=== PATIENT | male | born 1935 | race Caucasian/White ===

== ENCOUNTER 2019-03-31 10:50 | Inpatient (IN) ==
[2019-03-31] MEDS ORDERED: TYLENOL PO PRN (13:24)
[2019-03-31] MEDS ORDERED: NS 1,000 ML IV SCH (13:30)
--- NOTE | 2019-03-31 16:30 | Diag Imaging Result Doc PS360 ---
EXAM: CT HEAD W/O CONTRAST HISTORY: AMS, falls TECHNIQUE: Images were obtained from the skull base to vertex without IV contrast as per standard protocol. This exam was performed using automated exposure control, adjustment of mA or kV according to patient size, and/or use of iterative reconstruction technique. COMPARISON: None. Extra-axial spaces: Prominent consistent with moderate atrophy. Intracranial hemorrhage: None appreciated. Ventricular system: Ex vacuo dilatation. Cerebral parenchyma: The deep white matter hypodensity consistent with microvascular disease. Midline shift: None. Cerebellum: Unremarkable. Brainstem: Unremarkable. Calvarium: Normal. Paranasal sinuses and mastoid air cells: Clear. Visualized orbits: Normal. IMPRESSION: Atrophy and microvascular disease. No acute intracranial abnormality is appreciated. Electronically signed by Daniella Hamm 03/31/2019 4:28 PM
[2019-03-31] MEDS: HUMALOG (PARKWAY) SUBQ SCH ×2 (16:50→22:06)
[2019-03-31] MEDS: GLUCOPHAGE PO SCH (16:51)
--- NOTE | 2019-03-31 16:55 | HISTORY AND PHYSICAL ---
CHIEF COMPLAINT: Altered mental status, falls, hyperkalemia and urinary incontinence. HISTORY OF PRESENT ILLNESS: This is an 83-year-old gentleman with a history of BPH and diabetes mellitus. He presents to the hospital as direct admit from Dr. Alonzo's office. He is accompanied by his daughter, Mr. Mckeon has had a history of dementia and has declined over the last 4 to 6 months but during the last 3 to 4 weeks he has become more altered, in the last 2 weeks he has gotten lost while driving, he was pulled over by the police at this time speeding he was unaware of where he was or that he was speeding. He also reported to his daughter that he went walking and was found by a stranger that picked him up and brought him home. He has had difficulty walking with frequent falls over this past week. The daughter stated that at his home that he was soaked in urine and most of his furniture in his home has smells of urine and is actually wet with urine. He is a diabetic. Mr. Mckeon lives alone at [facility]. He is a diabetic that is prescribed metformin. On calling his pharmacy it was found that he has not filled his medications in quite some months neither his metformin nor his Flomax. Labs drawn at Dr. Alonzo's office prior to his admission revealed a potassium of 5.8 with blood sugar greater than 300. He was also noted to have yeast in his urine. PAST MEDICAL HISTORY: 1. Dementia. 2. Diabetes mellitus. 3. BPH. 4. Hypertension. PAST SURGICAL HISTORY: Multiple hernia surgeries. SOCIAL HISTORY: He lives alone. He denies any alcohol, tobacco or illicit drug use. He does have children that live in [place] that visit frequently. ALLERGIES: No known drug allergies. HOME MEDICATIONS: Metformin and Flomax. REVIEW OF SYSTEMS: Discussed with patient with pertinent positives stated in the HPI. He denied any syncope or dizziness any chest pain or palpitations, shortness of breath, cough, fever, chills, any nausea, vomiting, diarrhea, constipation, black or bloody vomitus or stools, any gross hematuria. PHYSICAL EXAMINATION: GENERAL: This is an 83-year-old gentleman who is sitting up in the chair in no distress. VITAL SIGNS: Blood pressure is 167/90 with a heart rate of 90, respirations are 20, temperature is 98.7 degrees oral with room air saturations 99%. HEENT: Pupils are equal, round, react to light EOMs are intact. Sclerae anicteric. Head is normocephalic, atraumatic. Mucous membranes are moist. NECK: Supple with trachea midline. CARDIOVASCULAR: Regular rate and rhythm. S1 and S2 appreciated. Calves are nontender bilateral with peripheral pulses palpable x4 extremities. PULMONARY: Breath sounds are clear with no increased work of breathing noted. Chest rises and falls symmetric with respiration. Chest wall is nontender to palpation. GASTROINTESTINAL: Abdomen soft, nontender, nondistended with bowel sounds in all 4 quadrants. NEUROLOGIC: He is alert, he is oriented with cranial nerves 2-12 grossly intact. SKIN: Warm and dry. ASSESSMENT AND PLAN: 1. Altered mental status. CT head, neuro checks 2. Frequent falls with difficulty walking. Fall precautions, PT 3. Hyperkalemia. Hold potassium containing meds, trend and treat as appropriate. IV hydration. 4. Diabetes mellitus with hyperglycemia. PBG/SSI 5. History of hypertension.c Monitor vs, continue home meds as appropriate 6. Urinary tract infection with yeast. Diflucan. CBC, CMP, HgBA1C, MALLORY, folate, B12 in am Urinalysis, urine culture Plan was discussed with Dr Singh Further treatments pending hospital course. Dictated by SOFI Martinez for Rosalio Singh MD cc: SOFI Martinez MD [facility]
[2019-03-31 17:56] LABS: URINE SOURCE CLEAN CATCH
[2019-03-31 18:14] LABS: BILIRUBIN URINE NEGATIVE (NEGATIVE); BLOOD URINE NEGATIVE (NEGATIVE); CLARITY CLEAR (CLEAR); COLOR YELLOW; KETONE URINE NEGATIVE (NEGATIVE); LEUKOCYTES URINE NEGATIVE (NEGATIVE); NITRITE URINE NEGATIVE (NEGATIVE); PROTEIN URINE NEGATIVE (NEGATIVE); UROBILINOGEN URINE NORMAL
[2019-03-31 18:22] LABS: URINE RBC <10 /HPF (<10); URINE WBC <10 /HPF (<10)
[2019-03-31 18:23] LABS: URINE BACTERIA NEGATIVE /HFP; URINE EPITHELIAL CELLS <10 /HPF (<10); URINE YEAST PRESENT /HPF
--- NOTE | 2019-03-31 19:29 | HISTORY AND PHYSICAL ---
ADDENDUM: The patient presented to the hospital from his primary care office with recurrent falls, urinary tract infection, difficulty walking and hyperkalemia. We are going to admit him to the hospital, treat his potassium, adjust medications, get Physical Therapy involved, and will follow. cc: Rosalio Singh MD
[2019-03-31] MEDS: DIFLUCAN PO SCH (22:33)
[2019-03-31] MEDS: FLOMAX PO SCH (22:33)
[2019-04-01 06:23] LABS: BASO# 0.04 X1000 (0.0-0.2); BASO% 0.5 % (0.0-0.8); EOS# 0.24 X1000 (0.0-0.7); EOS% 2.7 % (0.0-10.0); HEMATOCRIT 47.8 % (42.0-52.0); HEMOGLOBIN 16.3 g/dL (14.0-18.0); IMM GRAN# 0.05 X1000 (0.0-0.04); IMM GRAN% 0.6 % (0.0-0.5); LYMPH% 39.5 % (20.5-51.1); MCH 29.6 PG (27-31); MCHC 34.1 g/dL (33-37); MCV 86.8 FL (81-99); MONO# 0.81 X1000 (0.11-0.59); MONO% 9.2 % (1.7-9.3); MPV 9.7 FL (7.4-10.4); NEUT# 4.21 X1000 (1.4-6.5); NEUT% 47.5 % (42.2-75.2); PLT 242 X1000 (130-400); RBC 5.51 XMIL (4.7-6.1); RDW 12.7 % (11.5-14.5); WBC 8.85 X1000 (4.8-10.8)
[2019-04-01] MEDS: HUMALOG (PARKWAY) SUBQ SCH ×4 (06:25→22:17)
[2019-04-01] MEDS: PRILOSEC PO SCH (06:26)
[2019-04-01 06:27] LABS: HEMOGLOBIN A1C 10.7 % (4.8-6.0)
[2019-04-01 06:35] LABS: AGAP 11; ALBUMIN 3.9 g/dL (3.5-5.0); ALKALINE PHOSPHATASE 63 U/L (32-122); BUN 16 mg/dL (8-22); CALCIUM 9.3 mg/dL (8.8-10.2); CHLORIDE 97 mmol/L (98-107); COSMO 278; CREATININE 0.9 mg/dL (0.7-1.2); ESTIMATED GFR > 60; GLUCOSE 217 mg/dL (70-104); GOT 13 U/L (10-34); GPT 14 U/L (10-44); POTASSIUM 3.9 mmol/L (3.5-5.1); SODIUM 135 mmol/L (136-145); TCO2 28 mmol/L (25-35); TOTAL PROTEIN 6.6 g/dL (6.3-8.3)
[2019-04-01] MEDS: GLUCOPHAGE PO SCH ×2 (08:56→17:44)
[2019-04-01] MEDS: NS 1,000 ML IV SCH ×2 (08:56→22:16)
[2019-04-01] MEDS: DIFLUCAN PO SCH (08:56)
--- NOTE | 2019-04-01 13:35 | PROGRESS NOTE ---
DATE: 04/01/2019 SUBJECTIVE: Patient has no complaints, states he is ready to go home. He denies any fevers, chills. PHYSICAL EXAMINATION: Temperature 97.7 degrees, pulse 78, respiratory rate 18, BP 159/80.General: Patient is awake, alert. He is in no current respiratory distress. HEENT: Normocephalic. Neck: Supple. Cardiovascular: Regular rate. Chest: Clear. Abdomen: Soft, nondistended. Extremities: Moves all extremities. Neurologic: No changes. ASSESSMENT: 1. Dementia. 2. Adult failure to thrive with generalized weakness and frequent falls. 3. Hyperkalemia, resolved. 4. Diabetes. 5. Hypertension. PLAN: Will continue patient in the hospital, continue physical therapy. Expect that he will need rehab on discharge. cc: Rosalio Singh MD
[2019-04-01] MEDS: FLOMAX PO SCH (22:17)
[2019-04-02] MEDS: PRILOSEC PO SCH (06:10)
[2019-04-02] MEDS: HUMALOG (PARKWAY) SUBQ SCH ×4 (06:52→20:35)
[2019-04-02] MEDS: GLUCOPHAGE PO SCH ×2 (08:05→18:32)
[2019-04-02] MEDS: DIFLUCAN PO SCH (08:05)
[2019-04-02] MEDS: NS 1,000 ML IV SCH (11:55)
--- NOTE | 2019-04-02 13:37 | PROGRESS NOTE ---
DATE: 04/02/2019 SUBJECTIVE: The patient is sleeping comfortably. He has no new complaints. OBJECTIVE: Vital Signs: Temp 97, pulse 83, respiratory rate 18, BP 172/88. General: The patient is sleeping comfortably. He is in no respiratory distress. HEENT: Normocephalic. Neck: Supple. CV: Regular rate. Chest: Clear, nonlabored. Abdomen: Soft, nondistended. ASSESSMENT: 1. Hyperkalemia. 2. Dementia. 3. Diabetes with hyperglycemia. 4. Hypertension. PLAN: We are going to continue to follow his blood pressures. Certainly, he may require starting blood pressure medications. Hopefully, he can transition to rehab soon. cc: Rosalio Singh MD
[2019-04-02] MEDS: FLOMAX PO SCH (20:27)
[2019-04-03] MEDS: NS 1,000 ML IV SCH (01:13)
[2019-04-03 05:44] LABS: HEMATOCRIT 45.1 % (42.0-52.0); HEMOGLOBIN 15.4 g/dL (14.0-18.0); MCH 29.7 PG (27-31); MCHC 34.1 g/dL (33-37); MCV 87.1 FL (81-99); MPV 9.1 FL (7.4-10.4); RBC 5.18 XMIL (4.7-6.1); RDW 12.6 % (11.5-14.5); WBC 8.61 X1000 (4.8-10.8)
[2019-04-03 06:00] LABS: AGAP 11; BUN 15 mg/dL (8-22); CALCIUM 9.3 mg/dL (8.8-10.2); CHLORIDE 102 mmol/L (98-107); COSMO 286; CREATININE 0.9 mg/dL (0.7-1.2); ESTIMATED GFR > 60; GLUCOSE 195 mg/dL (70-104); POTASSIUM 4.1 mmol/L (3.5-5.1); SODIUM 140 mmol/L (136-145); TCO2 27 mmol/L (25-35)
[2019-04-03 06:33] VITALS: BP 169/76
[2019-04-03] MEDS: HUMALOG (PARKWAY) SUBQ SCH ×2 (06:37→11:52)
[2019-04-03] MEDS: PRILOSEC PO SCH (06:37)
[2019-04-03] MEDS: DIFLUCAN PO SCH (08:39)
[2019-04-03] MEDS: GLUCOPHAGE PO SCH (08:39)
--- NOTE | 2019-04-03 10:58 | Diag Imaging Result Doc PS360 ---
EXAM: CHEST-PORTABLE - 04/03/2019 HISTORY: rehab TECHNIQUE: Portable chest COMPARISON: 09/10/2016 FINDINGS: Heart size appears upper normal stable. Inspiration is mildly shallow. There is subsegmental atelectasis at the right base. The remainder of the lungs appear essentially clear. There is a possible small left pleural effusion. There is no pneumothorax identified. IMPRESSION: Mildly shallow inspiration, with mild atelectasis at right base. Possible small left pleural effusion. Electronically signed by Shlomo Gee 04/03/2019 10:56 AM
--- NOTE | 2019-04-03 11:45 | DISCHARGE SUMMARY ---
ADMISSION DATE: 03/31/2019 DISCHARGE DATE: 04/03/2019 ADMISSION DIAGNOSES: 1. Altered mental status with dementia. 2. Frequent falls with difficulty walking. 3. Hyperkalemia. 4. Diabetes mellitus with hyperglycemia. 5. History of hypertension. 6. Urinary tract infection with yeast. DISCHARGE DIAGNOSES: 1. Hyperkalemia. 2. Dementia. 3. Diabetes with hyperglycemia. 4. Hypertension. CONSULTATIONS: [employer] [facility] [employer] and physical therapy. SURGERIES/PROCEDURES: None. HOSPITAL COURSE: Mr. Tashi Mckeon is an 83-year-old male with a medical history of BPH, diabetes, dementia, presented to [facility] as a direct admit from Dr. Alonzo's office. He was accompanied by his daughter, and apparently he has been declining over the last 4 to 6 months and more confusion over the last 3 to 4 weeks; for example, getting lost while he was driving, being pulled over by the police due to speeding, was unaware of where he was at or that he was even speeding. He has been having difficulties with walking and more frequent falls. He has been found soaked in urine; furniture and everything smells like urine, and apparently he has been living alone at [facility]. He is diabetic. He was hyperglycemic. Generalized worsening weakness with frequent falls, was admitted. Apparently, he had a potassium of 5.8 when he was over at Dr. Alonzo's office as well, with a sugar that was over 300. He had yeast in his urine, so he was admitted and treated with Diflucan. He was started on sliding scale insulin. He was given some fluids and held any medications that contained potassium. Those all improved and he was deemed appropriate for discharge for rehab for which he will go to [facility] and rehab. DISCHARGE VITAL SIGNS: Temperature 97.8 degrees, heart rate 83, respiratory rate 16, blood pressure 169/76, O2 saturation 95% on room air. DISCHARGE LAB DATA: White blood cells 8000, hemoglobin 15, hematocrit 45, and platelet count 218. Sodium 140, potassium 4.1, BUN 15, creatinine 0.9, glucose 195, calcium 9.3. MICROBIOLOGY: Urine: No growth. PERTINENT IMAGIN. Head CT: Atrophy with microvascular disease, but nothing acute. 2. Chest x-ray: Right lung base atelectasis, possible small left pleural effusion. He had shallow inspiration. 3. Telemetry strip showed he had sinus rhythm while he was here. DISCHARGE MEDICATIONS: 1. Flomax 0.4 mg p.o. nightly. 2. Metformin 500 mg p.o. twice a day. 3. Diflucan 150 mg p.o. daily. 4. Tylenol 650 mg p.o. every 6 hours p.r.n. PHYSICIAN FOLLOWUPS: He will need to follow up with Dr. Alonzo as he was a direct admit with him. DISCHARGE INSTRUCTIONS: Take medications as prescribed. Any new or worsening symptoms, seek medical attention. DISCHARGE DISPOSITION: Self healthcare and rehabilitation. DISCHARGE DIET: Diabetic. DISCHARGE ACTIVITY: With physical therapy. Dictated by SOFI Archibald for Rosalio Singh MD cc: SOFI Archibald MD
--- NOTE | 2019-04-04 20:13 | DISCHARGE SUMMARY ---
ADMISSION DATE: 03/31/2019 DISCHARGE DATE: 04/03/2019 ADDENDUM: Patient seen and examined by myself. Full note dictated and discussed with nurse practitioner. On discharge, patient is awake, alert. He is in no distress. He is very pleasant. Does have a known history of dementia, diabetes, BPH, and hypertension. He was admitted for hyperkalemia. This was easily treated. His potassium has remained stable. DISPOSITION: He will be transferred to rehab. Please see full report. cc: Rosalio Singh MD
== END 2019-04-03 14:13 | DRG 641 ==
LOC: P.DIRADM 10:50 → SUATTDRO 10:50 → P.MEDSURG 11:48
PROVIDERS: ATTEND Family Medicine